=== PATIENT | female | born 1960 | race Caucasian/White ===

== ENCOUNTER → 2016-08-31 | Outpatient (CLI) | payer BC | END | disposition home or self-care (01) | LOC: C.PAPS 09:24 | PROVIDERS: ATTEND Obstetrics & Gynecology | DX: Z01.419 Encounter for gynecological examination (general) (routine) without abnormal findings (principal) ==

== ENCOUNTER → 2017-11-20 | Outpatient (CLI) | payer BC ==
--- NOTE | 2017-11-20 11:32 | DIAGNOSTIC IMAGING REPORT ---
R FOOT MIN 3 VIEWS CLINICAL HISTORY: 57 years-old Female presenting with RIGHT FOOT PAIN, chronic pain at the first MTP joint. TECHNIQUE: Frontal, oblique, and lateral views of the right foot were obtained. COMPARISON: None. FINDINGS: The first metatarsophalangeal articulation demonstrates minimal osteophytosis. No surrounding soft tissue abnormality. No evidence of erosions. Joint spaces preserved. No other degenerative changes evident elsewhere in the foot. No acute fracture or malalignment. Symphalangism of the mid to distal phalanges of the fourth and fifth toes noted. IMPRESSION: Minimal degenerative changes of the first metatarsophalangeal joint. No acute osseous injury. Electronically signed by: Naseem Martinez M.D. 11/20/2017 11:31 AM Dictated Date/Time: 11/20/2017 11:29 AM
== END | disposition home or self-care (01) ==
LOC: C.RDSM 11:09
PROVIDERS: ATTEND Internal Medicine
DX: M79.671 Pain in right foot (principal)